=== PATIENT | female | born 1955 | race Caucasian/White ===

== ENCOUNTER 2017-12-14 13:50 | Emergency (ER) | payer OTHER ==
[~2017-12-14] VITALS: Ht 160 cm; Wt 44.5 kg
[~2017-12-14 13:50] MED LIST: CALTRATE 600 W-1 TAB; COZAAR50 MG; OSTERA TABLET1 EACH; PROTONIX40 MG; SYNTHROID50 MCG; [UNRECOGNIZED DRUG - OTHER]; [UNRECOGNIZED DRUG - OTHER]
[2017-12-14] MEDS ORDERED: SYNTHROID50 MCG (14:28)
== END 2017-12-14 18:34 | disposition home or self-care (01) ==
LOC: ER 13:50
DX: J06.9 Acute upper respiratory infection, unspecified (principal); J45.998 Other asthma; J04.0 Acute laryngitis; J02.9 Acute pharyngitis, unspecified

== ENCOUNTER 2018-01-14 14:20 | Emergency (ER) | payer OTHER ==
[~2018-01-14] VITALS: Ht 160 cm; Wt 41.7 kg
== END 2018-01-14 17:44 | disposition home or self-care (01) ==
LOC: ER 14:20
DX: K52.9 Noninfective gastroenteritis and colitis, unspecified (principal)

== ENCOUNTER 2020-11-27 09:07 | Outpatient (CLI) | payer OTHER | END 2020-11-27 09:13 | disposition home or self-care (01) | LOC: LAB 09:07 | PROVIDERS: ATTEND Orthopaedic Surgery | DX: E21.2 Other hyperparathyroidism (principal); E55.9 Vitamin D deficiency, unspecified; M85.88 Other specified disorders of bone density and structure, other site; E88.89 Other specified metabolic disorders; M81.8 Other osteoporosis without current pathological fracture; E56.1 Deficiency of vitamin K ==

== ENCOUNTER 2021-04-13 10:04 | Emergency (ER) | payer OTHER ==
[~2021-04-13] VITALS: Ht 160 cm; Wt 48.5 kg
== END 2021-04-13 14:18 | disposition home or self-care (01) ==
LOC: ER 10:04
DX: I16.0 Hypertensive urgency (principal); I10 Essential (primary) hypertension; F41.8 Other specified anxiety disorders

== ENCOUNTER 2021-06-10 15:24 | Emergency (ER) | payer OTHER ==
[~2021-06-10] VITALS: Ht 160 cm; Wt 47.6 kg
== END 2021-06-10 22:06 | disposition home or self-care (01) ==
LOC: ER 15:24
DX: U07.1 COVID-19 (principal); B34.9 Viral infection, unspecified

== ENCOUNTER 2021-07-16 10:58 | Emergency (ER) | payer OTHER ==
[~2021-07-16] VITALS: Ht 160 cm; Wt 45.4 kg
[2021-07-16] MEDS ORDERED: HYPERSAL 3.5% IH (13:07)
[2021-07-16] MEDS ORDERED: [UNRECOGNIZED DRUG - OTHER] PO (13:07)
[2021-07-16] MEDS ORDERED: MUCINEX1200 MG PO (13:07)
[2021-07-16] MEDS ORDERED: PROMETH-CODEIN 65 ML PO (16:32)
== END 2021-07-16 16:42 | disposition home or self-care (01) ==
LOC: ER 10:58
DX: H93.13 Tinnitus, bilateral (principal); R53.81 Other malaise

== ENCOUNTER 2021-11-12 08:00 | Outpatient (CLI) | payer OTHER ==
[~2021-11-12 08:00] MED LIST changes: +HYPERSAL 3.5% IH; +MUCINEX1200 MG PO; +PROMETH-CODEIN 65 ML PO; +[UNRECOGNIZED DRUG - OTHER] PO
== END 2021-11-12 08:30 | disposition home or self-care (01) ==
LOC: PPH VACUNA 08:00
PROVIDERS: ATTEND Emergency Medicine Pediatric Emergency Medicine
DX: Z23 Encounter for immunization (principal)

== ENCOUNTER 2025-01-11 12:54 | Emergency (ER) | payer OTHER ==
[~2025-01-11] VITALS: Ht 160 cm; Wt 45.8 kg
== END 2025-01-11 17:08 | disposition home or self-care (01) ==
LOC: ER 12:57
DX: M72.2 Plantar fascial fibromatosis (principal); Z88.8 Allergy status to other drugs, medicaments and biological substances; Z88.9 Allergy status to unspecified drugs, medicaments and biological substances